=== PATIENT | male | born 1930 | race Caucasian/White ===

== ENCOUNTER 2019-02-04 13:43 | Inpatient (IN) ==
--- NOTE | 2019-02-04 15:05 | PROVIDER DOCUMENTATION ---
HPI-General Adult - General Chief Complaint: Extremity Injury Stated Complaint: fall, ankle fx Time Seen by Provider: 02/04/19 14:01 Source: patient, family Allergies/Adverse Reactions: Patient Allergies Allergy/AdvReac Type Severity Reaction Status Date / Time No Known Allergies Allergy Verified 04/24/18 10:26 Home Medications: Home Medication List Medication Instructions Recorded Confirmed Last Taken Type ATORVAstatin [Lipitor] 40 mg PO QHS 06/21/17 04/24/18 04/24/18 History Baclofen 10 mg PO BID 06/21/17 04/24/18 04/23/18 History Carvedilol [Coreg] 12.5 mg PO BID 06/21/17 04/24/18 04/23/18 History Clopidogrel [Plavix] 75 mg PO DAILY 06/21/17 04/24/18 04/23/18 History Hydrocodone/APAP 10 mg/325 mg 1 ea PO Q6H PRN PRN #14 tab 06/23/17 04/24/18 04/23/18 Rx [Addison-10] Aspirin 81 mg PO DAILY 07/10/17 04/24/18 04/23/18 History Lisinopril 5 mg PO DAILY 07/10/17 04/24/18 04/23/18 History - History of Present Illness -Gen Adult Nature of Presenting Problems: This is a 88yo male who presents with CC of fall and ankle injury about 1 hour ago. The patient reports he was walking down the steps and mis-stepped on the last step and hurt his ankle. The patient denies any head injury or LOC. The patient denies any pain except at his ankle. The patient denies any issues with that ankle previously, and the patient denies seeing any bleeding or bone. Location of Pain/Injury: reports: lower extremity (left ankle) Onset/Duration: reports: 1 hour ago Timing: reports: still present Context/Activities at Onset: reports: other (walking and mis-step on steps) Associated Symptoms: reports: denies symptoms Review of Systems - Adult - REVIEW OF SYSTEMS - ADULT Constitutional: reports: no symptoms reported Eyes: reports: no symptoms reported. denies: eye pain Ears, Nose, Mouth & Throat: reports: no symptoms reported. denies: throat pain Cardiovascular: reports: no symptoms reported. denies: chest pain Respiratory: reports: no symptoms reported Gastrointestinal: reports: no symptoms reported. denies: abdominal pain Genitourinary: reports: no symptoms reported. denies: flank pain Musculoskeletal: reports: joint pain (ankle joint pain) Integumentary: reports: other (skin swelling at ankle) Neurological: reports: no symptoms reported. denies: headache/migraines Psychiatric: reports: no symptoms reported Endocrine: reports: no symptoms reported Hematologic/Lymphatic: reports: no symptoms reported, other (no bleeding) Past History - Adult - PAST MEDICAL HISTORY-ADULT Review of Records: reports: Old Records Reviewed Major Childhood Illnesses: reports: denies history Cardiovascular: reports: denies history Respiratory: reports: denies history Gastrointestinal: reports: denies history Genitourinary: reports: prostate cancer Musculoskeletal: reports: denies history Neurological: reports: denies history Endocrine/Immune: reports: denies history 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) - PRIOR SURGERIES/PROCEDURES Surgical/Procedure History: reports: reviewed, not pertinent - IMMUNIZATION STATUS Childhood Immunizations: See Nurse Assessment Flu Vaccine: See Nurse Assessment - FAMILY HISTORY Family History: reviewed, not pertinent - SOCIAL HISTORY Smoking: denies Substance Use: none/never Alcohol Use Frequency: never Physical Exam-General - PHYSICAL EXAM-ADULT Initial Vital Signs Reviewed: Yes - CONSTITUTIONAL General Appearance: appears well, alert, no apparent distress - EYES Eyes: negative: conjuctival exudate, photophobia - HEAD, EARS, NOSE, MOUTH & THROAT HENMT: normocephalic/atraumatic, moist mucous membranes - NECK Neck: normal inspection - RESPIRATORY Respiratory: normal breath sounds - CARDIOVASCULAR Cardiovascular: regular rate, rhythm, no murmur - GASTROINTESTINAL (ABDOMEN) Abdominal Exam: non tender, soft - MUSCULOSKELETAL Extremity: deformity (left ankle with swelling and gross deformity), erythema, other (2+ left dorsalis pedis pulse, sensation and motor intact in the LLE) - SKIN Integumentary: erythema (noted over left ankle, no skin break noted), other (there is a small approximately 3-4mm break in the skin noted at the left medial malleolus. The area is hemostatic.) - NEUROLOGIC Neurologic: grossly normal - PSYCHIATRIC Psych/Mental Status: normal mood/affect, normal thought content, normal thought process Progress - PLAN OF CARE/RESULTS Progress/Plan/Lab Results: Vital Signs - 8 hr 02/04/19 14:18 Temperature 97.9 F Pulse Rate 75 Respiratory Rate 18 Blood Pressure 179/98 O2 Sat by Pulse Oximetry 97 Orders Category Date Time Status ANKLE 2 VIEWS LEFT [RAD] Stat Exams 02/04/19 14:45 Ordered FOOT 2 VIEWS LEFT [RAD] Stat Exams 02/04/19 14:47 Ordered LOWER LEG-LEFT [RAD] Stat Exams 02/04/19 14:45 Ordered - REASSESSMENT Reassessment #1 Status: other (Fractures and dislocation noted on xray. Awaiting discussion with on-call ortho.) Reassessment #2 Status: other (Discussed case with ortho who recomend reduction of the ankle and admission to the hospitalist service with plans for surgery tomorrow. Discussed with patient and family about procedure with risks and benfits and they are agreable. Will use concious sedation for procedure.) Reassessment #3 Status: other (Patient now awake post sedation and doing well. Discussed case with hospitalist team who have accepted the patient. IV abx were started given small break in skin noted prior to reduction and concern for possible open fx.) - XRAY 1 XRAY Study: Tibia/Fibula (Signed EXAM: LOWER LEG-LEFT HISTORY: fall TECHNIQUE: Three views COMPARISON: None. FINDINGS: There is a transverse fracture to the medial malleolus. The tibia is dislocated medially in relation to the talus over 2.5 cm. There is an oblique fracture to the distal fibula. The fibula shaft remains aligned with the tibial shaft and is dislocated medially. The lateral malleolus remains aligned with the talus. Over 35 degrees angle at this fracture. Nondisplaced fracture to the proximal fibula. IMPRESSION: Fractures to the tibia and fibula. Electronically signed by Jevon Ellington 02/04/2019 3:58 PM 02/04/19 8828 Interpreting Physician: Jevon Ellington MD Dictated Date/Time: 02/04/19 7139), Ankle (EXAM: ANKLE 2 VIEWS LEFT HISTORY: Fall TECHNIQUE: Two views COMPARISON: None. FINDINGS: There is an oblique fracture to the distal shaft of the fibula. There is a transverse fracture to the medial malleolus with an additional fracture through the posterior tibia. The shafts of the tibia and fibula are dislocated from the talus. The lateral and medial malleolar lumbar fragments remain aligned with the talus. IMPRESSION: Fractures to the distal tibia and fibula Electronically signed by Jevon Ellington 02/04/2019 3:30 PM 02/04/19 1530 Interpreting Physician: Jevon Ellington MD Dictated Date/Time: 02/04/19 1528 cc: Adin Blair MD; Edward Aaron MD), Foot (EXAM: FOOT 2 VIEWS LEFT HISTORY: Fall TECHNIQUE: Left foot two views COMPARISON: None. FINDINGS: Fractures and dislocations to the distal tibia and fibula again demonstrated. No other fracture to the left. IMPRESSION: Fractures and dislocations to the distal tibia and fibula, but no acute fracture to the foot. Electronically signed by Jevon Ellington 02/04/2019 3:47 PM 02/04/19 1547 Interpreting Physician: Jevon Ellington MD Dictated Date/Time: 02/04/19 1546 cc: Adin Blair MD; Edward Aaron MD) XRAY Interpretation: Procedures - SPLINTING Left Lower Extremity Pre-Procedure Neurovascular Exam: Intact Splint Application (Hand-Made): Posterior OCL, Other (ankle stirrup) Applied By: ED Physician Assisted By: ED Physician (as well as natural gas technician) Post Procedure Neurovascular Exam: Intact - PROCEDURAL SEDATION Procedure, Risk, Benefits and Alternatives discussed with:: Patient Consent Form Signed?: Yes Sedation type:: moderate ASA Classification Score: P2. Patient with a mild systemic disease. Plan explained to:: patient Preparation: consent signed Sedation: propofol, ketamine Reversal: none Complications during/after procedure?: none Intra-service time:: 30 minutes or less (Post exam patient neurovascularly intact.) Procedure Comment: Successful reduction of left ankle w/o complications.Patient tolerated well Departure - Departure Date of Disposition Decision: 02/04/19 Time of Disposition Decision: 18:08 DIAGNOSIS: Fracture of tibia with fibula, left, open, Ankle dislocation Ankle fracture, left Qualifiers: Encounter type: initial encounter Fracture type: open Disposition: ADMITTED INPATIENT 09 Certified Medical Emergency: Emergent Condition: Fair Referrals and Follow-Ups: Edward Aaron MD [Primary Care Provider] - - Critical Care Note This patient required my direct & personal management of CC.: No Attestation - Physician/ MANOJ Attestation Patient care was provided by Advanced Practice Provider:: No The physician spent face to face time with patient:: Yes Advanced Practice Provider documentation review:: Supervising physician onsite and consulted in the evaluation and care of this patient. The physician did have a face to face encounter with the patient.
--- NOTE | 2019-02-04 15:32 | Diag Imaging Result Doc PS360 ---
EXAM: ANKLE 2 VIEWS LEFT HISTORY: Fall TECHNIQUE: Two views COMPARISON: None. FINDINGS: There is an oblique fracture to the distal shaft of the fibula. There is a transverse fracture to the medial malleolus with an additional fracture through the posterior tibia. The shafts of the tibia and fibula are dislocated from the talus. The lateral and medial malleolar lumbar fragments remain aligned with the talus. IMPRESSION: Fractures to the distal tibia and fibula Electronically signed by Jevon Ellington 02/04/2019 3:30 PM
--- NOTE | 2019-02-04 15:50 | Diag Imaging Result Doc PS360 ---
EXAM: FOOT 2 VIEWS LEFT HISTORY: Fall TECHNIQUE: Left foot two views COMPARISON: None. FINDINGS: Fractures and dislocations to the distal tibia and fibula again demonstrated. No other fracture to the left. IMPRESSION: Fractures and dislocations to the distal tibia and fibula, but no acute fracture to the foot. Electronically signed by Jevon Ellington 02/04/2019 3:47 PM
--- NOTE | 2019-02-04 16:01 | Diag Imaging Result Doc PS360 ---
EXAM: LOWER LEG-LEFT HISTORY: fall TECHNIQUE: Three views COMPARISON: None. FINDINGS: There is a transverse fracture to the medial malleolus. The tibia is dislocated medially in relation to the talus over 2.5 cm. There is an oblique fracture to the distal fibula. The fibula shaft remains aligned with the tibial shaft and is dislocated medially. The lateral malleolus remains aligned with the talus. Over 35 degrees angle at this fracture. Nondisplaced fracture to the proximal fibula. IMPRESSION: Fractures to the tibia and fibula. Electronically signed by Jevon Ellington 02/04/2019 3:58 PM
[2019-02-04] MEDS ORDERED: DIPRIVAN 1% IV ONE ×2 (17:03→17:16)
[2019-02-04] MEDS ORDERED: NS 1,000 ML IV ONE (17:14)
[2019-02-04] MEDS ORDERED: KETAMINE IV ONE (17:17)
[2019-02-04] MEDS ORDERED: VANCOMYCIN 1 GM/NS 1 GM/250 ML IVPB IV ONE (18:00)
[2019-02-04] MEDS ORDERED: ZOSYN 4.5 GM in NS 100 ML IV SCH (18:00)
[2019-02-04] MEDS ORDERED: KEFZOL 2 GM/D5W 2 GM/50 ML IVPB IV ONE (18:29)
[2019-02-04] MEDS ORDERED: ZOFRAN IV PRN (18:42)
[2019-02-04] MEDS ORDERED: VANCOMYCIN IV PER PHARMACY MISC SCH (19:00)
--- NOTE | 2019-02-04 19:05 | Diag Imaging Result Doc PS360 ---
EXAM: ANKLE COMPLETE LEFT INDICATION: INJURY TECHNIQUE: 3 views COMPARISON: 02/04/2019 FINDINGS: The known fractures of the distal fibular shaft and the medial malleolus are better aligned status post reduction. There is now only mild displacement. No new fractures are appreciated on these images. There is casting material surrounding the ankle. IMPRESSION: Interval reduction of the fractures of the distal tibia and fibula as described. Electronically signed by Suleiman Chavarria 02/04/2019 7:02 PM
[2019-02-04] MEDS ORDERED: MORPHINE IV PRN (19:21)
--- NOTE | 2019-02-04 20:35 | HISTORY AND PHYSICAL ---
CHIEF COMPLAINT: Fall, left foot pain. HPI: This is an 88-year-old gentleman who presented to the emergency room after miss stepping while walking down steps, falling and hurting his left ankle. He was found to have a dislocation as well as a tibia and fibula fracture. He underwent closed reduction in the emergency room per the ER physician with a posterior OCL ankle stirrup applied, which he tolerated well. He does have good PMS at the time of my exam. There was a question of an open fracture as he does have an area to his left medial malleolus that may be a half a centimeter break in the skin with the possibility of an open fracture for which he has received vancomycin and Zosyn. Dr. Ellsworth, Orthopedics has been consulted. PAST MEDICAL HISTORY: 1. Prostate cancer status post total prostatectomy greater than 15 years ago. 2. 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 3. Basal cell cancer on the penile shaft that has been excised x2. 4. 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 FAMILY HISTORY: CAD in his 2 brothers, negative for diabetes. SOCIAL HISTORY: He has 3 children. He quit smoking greater than 25 years ago. He denies any alcohol or illicit drug use. ALLERGIES: No known drug allergies. HOME MEDICATIONS: A list will be obtained by the nursing staff and once verified will review and restart as appropriate. REVIEW OF SYSTEMS: Discussed with patient with pertinent positives stated in the HPI. He denied any syncope, dizziness, chest pain, palpitations, shortness of breath, cough, fever, chills, any night sweats, PND, orthopnea, any recent weight loss or weight gain, any nausea, vomiting, diarrhea, constipation, black or bloody vomitus or stools, any hematuria, dysuria, frequency, urgency. PHYSICAL EXAMINATION: This is an 88-year-old gentleman who is lying in the bed. He is drowsy after being sedated for post reduction in no distress. VITAL SIGNS: Blood pressure is 160/94 with heart rate of 68, respirations 18, temperature is 97.9 degrees oral with room air saturations 98-100% HEENT: Pupils equal, round, react to light. EOMs are intact. Sclerae anicteric. Head is normocephalic, atraumatic. Mucous membranes are moist. NECK: Supple, trachea midline. CARDIOVASCULAR: Regular rate and rhythm, S1, S2 appreciated. He has no upper or right lower extremity edema. Left lower extremity is edematous just at the ankle. Peripheral pulses are palpable x4 extremities. PULMONARY: Breath sounds are clear. No increased work of breathing noted. Chest rises and falls symmetric with respiration. GASTROINTESTINAL: Abdomen soft, nontender, nondistended. Bowel sounds in all 4 quadrants. NEUROLOGIC: He is drowsy after sedation. SKIN: Warm and dry. There is area to his left medial malleolus about half a centimeter with skin is broken with no drainage. LABS: There are no labs. X-ray left lower leg revealed fractures to the tibia and fibula. Tibia is dislocated medially in relation to the talus over 2.5 cm. Left foot x-ray reveals fractures and dislocations to the distal tibia and fibula but no acute fracture to the foot . ASSESSMENT AND PLAN: 1. Tibia-fibula fracture, posterior OCL splint is in place. The patient has been evaluated by Orthopedics. He will be admitted. He will be NPO tonight for surgery in the morning. 2. Questionable open fracture. He was given vancomycin and Zosyn in the emergency room but we will continue with antibiotic coverage. 3. History of prostate cancer aware. 4. 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 5. Will check a stat CBC, CMP and PT/INR now. Repeat a CBC and CMP in the morning. The patient will be NPO. 6. Further treatments pending hospital course. 7. Plan was discussed with Dr. Baker. Dictated by SUSI Patterson for Narciso Baker MD cc: SUSI Patterson MD
[2019-02-04 20:59] LABS: BASO# 0.02 X1000 (0.0-0.2); BASO% 0.2 % (0.0-0.8); EOS# 0.17 X1000 (0.0-0.7); EOS% 1.9 % (0.0-10.0); HEMOGLOBIN 14.2 g/dL (14.0-18.0); LYMPH# 1.42 X1000 (1.2-3.4); LYMPH% 16.1 % (20.5-51.1); MCH 33.6 PG (27-31); MCHC 33.8 g/dL (33-37); MCV 99.5 FL (81-99); MONO# 1.26 X1000 (0.11-0.59); MONO% 14.3 % (1.7-9.3); MPV 10.3 FL (7.4-10.4); NEUT# 5.93 X1000 (1.4-6.5); NEUT% 67.5 % (42.2-75.2); PLT 154 X1000 (130-400); RBC 4.22 XMIL (4.7-6.1); RDW 13.8 % (11.5-14.5)
--- NOTE | 2019-02-04 21:04 | EKG Report ---
Test Performed on : 02/04/2019 8:34:57 PM Test Reason : Afib Blood Pressure : / mmHG Vent. Rate : 083 BPM Atrial Rate : 083 BPM P-R Int : 192 ms QRS Dur : 162 ms QT Int : 430 ms P-R-T Axes : 108 176 159 degrees QTc Int : 505 ms Suspect arm lead reversal, interpretation assumes no reversal Normal sinus rhythm. Right bundle branch block Lateral infarct , age undetermined T wave abnormality, consider inferior ischemia Abnormal ECG When compared with ECG of 24-APR-2018 09:56, QRS axis shifted right Lateral infarct is now present QT has lengthened Unconfirmed Result
[2019-02-04 21:06] LABS: INR 1.06
[2019-02-04 21:25] LABS: AGAP 12; ALB/GLOB RATIO 1.6; ALBUMIN 3.8 g/dL (3.5-5.0); ALKALINE PHOSPHATASE 45 U/L (32-122); BUN 16 mg/dL (8-22); CHLORIDE 104 mmol/L (98-107); COSMO 278; CREATININE 1.1 mg/dL (0.7-1.2); ESTIMATED GFR > 60; GLUCOSE 92 mg/dL (70-104); GOT 17 U/L (10-34); GPT 11 U/L (10-44); POTASSIUM 4.5 mmol/L (3.5-5.1); SODIUM 139 mmol/L (136-145); TCO2 23 mmol/L (25-35); TOTAL PROTEIN 6.2 g/dL (6.3-8.3)
--- NOTE | 2019-02-04 21:37 | ORTHOPAEDICS CONSULTATION ---
DATE: 02/04/2019 CHIEF COMPLAINT: Left ankle pain. HISTORY OF PRESENT ILLNESS: This is an 88-year-old male who presented to the emergency department at [facility] for a left ankle injury. The patient reports he was walking down some steps and missed the last step and twisted his ankle and felt a pop. The patient denies head injury, LOC. The patient reports that he is unable to bear weight on the ankle at this time. PAST MEDICAL HISTORY: Patient reports high blood pressure, hyperlipidemia, throat cancer in remission, prostate cancer in remission. PAST SURGICAL HISTORY: Patient has had a prostatectomy and a tumor removed from his throat. PHYSICAL EXAMINATION: General: Patient is awake, alert, sitting in hospital bed in no acute distress at this time. HEENT: Head is atraumatic, normocephalic. Neck: Supple. Respiratory: Equal chest expansion, rise and fall. Cardiovascular: There is regular rate and rhythm at this time. Abdomen: Soft, nontender. Musculoskeletal.: Left lower extremity. There is noted deformity of the left lower extremity with a mild spot of redness to the medial aspect of the ankle. There is small break in the skin at this area. There is some erythema with 2+ pedal pulses. There is good sensation. There is good capillary refill in the toes. Vital Signs: Temperature 97.9 degrees, pulse rate 75, respiratory rate 18, blood pressure 179/98, oxygen saturation 97% on room air. MEDICATIONS: The patient reports Lipitor 40 mg at bedtime, aspirin 81 mg daily, baclofen 10 mg b.i.d., carvedilol 12.5 mg b.i.d. Patient denies taking Plavix at this time but it does show up on his medication history. The patient reports taking lisinopril 5 mg daily. The patient states he is now taking aspirin 81 mg daily instead of Plavix. ALLERGIES: There are no known drug allergies. REVIEW OF SYSTEMS: Twelve point review of system was performed, pertinent positives listed in HPI. X-RAYS: Left lower extremity x-ray shows a trimalleolar ankle fracture with displacement to the distal tibia and fibula. A reduction was done in the ER and postreduction films show better alignment to the distal tibia and fibula but still remains displaced. ASSESSMENT: Trimalleolar ankle fracture. PLAN: We will plan to do an ORIF of the left ankle tomorrow. The patient understands that surgery is going to be needed for his ankle. They agreed to the risks of surgery which include possible damage to tendon or blood vessel, risk of , or problems with anesthesia. The patient and family at bedside agreed to these risks. We will proceed with ORIF of the left ankle tomorrow. We will keep the patient NPO tonight after midnight. We will also keep him in the short-leg splint at this time. LABS: Labs are currently unavailable for review. We will check back on them in the morning, make sure they are all good before surgery. Dictated by SUSI Wade for Suleiman Ellsworth MD cc: SUSI Wade MD
--- NOTE | 2019-02-04 22:08 | HISTORY AND PHYSICAL ---
ADDENDUM: I have seen and examined Mr. De La Cruz today. The daughter was at the bedside at the time of the encounter. Mr. De La Cruz came in to the emergency room today after he sustained a trauma to his left ankle. Apparently, he was coming off the stairs and he seems to have missed the last step at home, and then stepped wrongly and inverted when it happened. He just could not bear any weight any longer. The left ankle started to swell. He came to the emergency department where he was evaluated, and an x-ray has shown fractures to the tibia and the fibula. Mr. De La Cruz has been admitted for further orthopedic evaluation. Orthopedic team has already been notified. His medical history includes previous history of coronary artery disease, status post stent, dyslipidemia, and hypertension, which are all under control. Mr. De La Cruz is completely asymptomatic from the heart standpoint. He denies any diabetes. He denies any chronic liver injury. He denies any chronic lung disease or kidney disease. His physical exam for the most part is unremarkable except for the left lower extremity which is currently in a cast. I have also reviewed all his x-rays. The repeat ankle x- ray after the reduction shows interval reduction of the fractures of the distal tibia and the fibula. LABORATORY DATA: Currently not available. ASSESSMENT: 1. Status post trauma to the left lower extremity, leading into multiple fractures of both the tibia and the fibula. The patient has currently been reduced. Orthopedics have been consulted. There is a possibility of taking him to the operating room tomorrow. 2. Coronary artery disease, currently stable. Patient is completely asymptomatic. He is on home medications which are all okay to be started. 3. Hypertension, currently uncontrolled. I think part of it is because he is hurting. Once pain is better addressed, I think this will also be okay. 4. Dyslipidemia. Will continue with his home atorvastatin. PERIOPERATIVE EVALUATION: Mr. De La Cruz is an 88-year-old gentleman who does not have any chronic liver or lung or kidney disease. He does not have diabetes. He does have a stable coronary artery disease on medications and he is currently asymptomatic. He is not on any blood thinner except for an antiplatelet which is aspirin for his stable coronary artery disease. Mr. De La Cruz is a low to moderate risk patient for a nonvascular orthopedic intervention. We recommend surgery to proceed. Please refer to the details of the H&P dictated by the PROJECT FACILITATOR in the chart. cc: Narciso Baker MD [facility]US[facility]adine
[2019-02-05] MEDS ORDERED: KEFZOL 2 GM/D5W 2 GM/50 ML IVPB IV SCH (05:00)
[2019-02-05 08:19] LABS: AGAP 12; ALB/GLOB RATIO 1.3; ALBUMIN 3.6 g/dL (3.5-5.0); ALKALINE PHOSPHATASE 46 U/L (32-122); BUN 14 mg/dL (8-22); CALCIUM 8.8 mg/dL (8.8-10.2); CHLORIDE 100 mmol/L (98-107); COSMO 273; CREATININE 1.1 mg/dL (0.7-1.2); ESTIMATED GFR > 60; GLUCOSE 110 mg/dL (70-104); GOT 16 U/L (10-34); GPT 8 U/L (10-44); POTASSIUM 4.5 mmol/L (3.5-5.1); SODIUM 136 mmol/L (136-145); TCO2 24 mmol/L (25-35); TOTAL BILIRUBIN 0.93 mg/dL (0.20-1.00); TOTAL PROTEIN 6.3 g/dL (6.3-8.3)
[2019-02-05 08:26] LABS: BASO# 0.03 X1000 (0.0-0.2); BASO% 0.5 % (0.0-0.8); EOS# 0.18 X1000 (0.0-0.7); EOS% 3.1 % (0.0-10.0); HEMATOCRIT 43.5 % (42.0-52.0); HEMOGLOBIN 14.2 g/dL (14.0-18.0); LYMPH# 1.08 X1000 (1.2-3.4); LYMPH% 18.6 % (20.5-51.1); MCH 32.9 PG (27-31); MCHC 32.6 g/dL (33-37); MCV 100.9 FL (81-99); MONO# 0.91 X1000 (0.11-0.59); MONO% 15.6 % (1.7-9.3); NEUT# 3.62 X1000 (1.4-6.5); NEUT% 62.2 % (42.2-75.2); PLT 148 X1000 (130-400); RBC 4.31 XMIL (4.7-6.1); RDW 13.8 % (11.5-14.5); WBC 5.82 X1000 (4.8-10.8)
[2019-02-05] MEDS ORDERED: DIPRIVAN 1% ONE (11:01)
[2019-02-05] MEDS ORDERED: XYLOCAINE-MPF 2% ONE (11:39)
[2019-02-05] MEDS ORDERED: SENSORCAINE-MPF 0.5%/EPI 1:200,000 ONE (12:14)
[2019-02-05] MEDS ORDERED: KEFZOL 2 GM/D5W 2 GM/50 ML IVPB ONE (12:40)
[2019-02-05] MEDS ORDERED: OFIRMEV 1000 MG/ISOTONIC SOLN 1,000 MG/100 ML BOTTLE ONE (13:01)
[2019-02-05] MEDS ORDERED: ZOFRAN ONE (13:01)
[2019-02-05] MEDS ORDERED: DILAUDID ONE (13:09)
[2019-02-05] MEDS ORDERED: EPHEDRINE ONE (13:21)
--- NOTE | 2019-02-05 14:49 | OPERATIVE NOTE ---
PROCEDURE DATE: 02/05/2019 PREOPERATIVE DIAGNOSIS: Fracture-dislocation, left ankle. POSTOPERATIVE DIAGNOSIS: Fracture-dislocation, left ankle. PROCEDURES PERFORMED: 1. Open reduction and internal fixation of distal tibia. 2. Open reduction and internal fixation of distal fibula, left ankle. SURGEON: Suleiman Ellsworth MD. FISH[employer]IES TECHNICAL OFFICER: SUSI Rosario. ANESTHESIA: General. COMPLICATIONS: None. PROCEDURE IN DETAIL: This 88-year-old male presents for ORIF of a comminuted bimalleolar ankle fracture-dislocation. Risks, benefits, and no guarantees were discussed, and he is willing to proceed. He was taken to the operating room and satisfactory anesthesia obtained. The left leg was prepped and draped in the usual sterile fashion. A time-out was taken to confirm operative site, procedure, and patient. The leg was wrapped with an Esmarch and tourniquet inflated to 300 mmHg. The distal fibula was approached first through a lateral incision. An excessively comminuted distal fibular fracture was noted. This was reduced longitudinally as well as rotationally. Two interfragmentary screws were placed to reduce the fracture to a simple Garcia B type pattern. A locking distal fibular Synthes plate was then secured with AO technique with multiple locking screws distally and proximally to secure the reduction. Afterwards, this was imaged with the fluoroscopic unit to verify proper alignment and rotation and length. Good stability of the fixation was achieved. The wound was irrigated and closed in layers with 2-0 Vicryl and skin cristiane. An incision was made over the medial side of the ankle and the medial malleolus fracture exposed. Excessive comminution of the medial malleolus was noted. The decision was made to use a hook type buttress plate as well as a longitudinal screw from the tip of the medial malleolus up the metaphysis to compress the fracture. Using the hook plate, this was used as a buttress and 2 additional cancellous screws placed to secure the hook plate. C-arm was used to verify accurate fracture reduction and hardware placement. The wound was irrigated and closed with similar technique with 2-0 Vicryl and skin cristiane. Sterile dressings were applied and a posterior plaster splint with stirrup. The patient was recovered from anesthesia and tourniquet released with good return of capillary blood flow. No intraoperative complications were noted. Instrument count and sponge count were correct at the time of closure. cc: Suleiman Ellsworth MD
[2019-02-05] MEDS ORDERED: ZOFRAN IV PRN (15:29)
[2019-02-05] MEDS ORDERED: MILK OF MAGNESIA PO PRN (15:29)
[2019-02-05] MEDS ORDERED: HALDOL IV PRN (15:30)
--- NOTE | 2019-02-05 16:32 | PROGRESS NOTE ---
DATE: 02/05/2019 SUBJECTIVE: This morning Mr. De La Cruz referred to be doing well, was hurting in the foot and was awaiting for surgery to be done. OBJECTIVE: Vital signs: Blood pressure is 146/87, pulse of 81, respirations 20, temperature 98.5 degrees. General: Mr. De La Cruz is an 88-year-old elderly gentleman. He was in bed. He was not in any distress. HEENT: Mucosa was pink and moist. Anicteric. Acyanotic. Neck: Supple. Chest: Clear. No crepitations. No rhonchi. Cardiovascular: Regular rate and rhythm. Abdomen: Soft, nontender. Bowel sounds present. Extremities: The left is in orthopedic cast. Right is unremarkable. MANAGEMENT COORDINATOR: Patient is awake, alert, and oriented. LABORATORY DATA: CBC showed microcytosis. Chemistry was unremarkable. ASSESSMENT: 1. Status post trauma to the left lower extremity resulting into multiple fractures of the tibia and fibula. Patient was pending orthopedic intervention today. 2. History of coronary artery disease, currently asymptomatic. 3. Hypertension, controlled. 4. Dyslipidemia. PLAN: In general, I think Mr. De La Cruz is clinically stable. He is currently completely asymptomatic. He was pending surgery later on today. This afternoon we reviewed his chart, and he has finished the procedure, which included an open reduction and internal fixation of the distal tibia, and there was also an open reduction and internal fixation of the distal fibula. Will re-evaluate Mr. De La Cruz tomorrow morning. We will get Physical Therapy also to evaluate him and decide whether he can go home or he will need to be in rehab. cc: Narciso Baker MD
[2019-02-05] MEDS: NS 1,000 ML IV SCH ×2 (16:41)
[2019-02-05] MEDS: COLACE PO SCH (20:00)
[2019-02-05] MEDS: OXY IR PO PRN ×2 (20:01→23:14)
[2019-02-05] MEDS: KEFZOL 1 GM/D5W 1 GM/50 ML IVPB IV SCH (20:02)
[2019-02-05] MEDS: MORPHINE IV PRN (22:09)
[2019-02-05] MEDS: TYLENOL PO SCH (23:19)
[2019-02-06] MEDS: MORPHINE IV PRN ×2 (00:20→06:01)
[2019-02-06] MEDS: KEFZOL 1 GM/D5W 1 GM/50 ML IVPB IV SCH (06:01)
[2019-02-06] MEDS: TYLENOL PO SCH ×3 (06:02→22:21)
[2019-02-06] MEDS: XARELTO PO SCH (06:02)
[2019-02-06 07:19] LABS: HEMATOCRIT 40.4 % (42.0-52.0); HEMOGLOBIN 12.9 g/dL (14.0-18.0)
--- NOTE | 2019-02-06 07:43 | ORTHOPAEDICS PROGRESS NOTE ---
DATE: 02/06/2019 Mr. De La Cruz is seen status post ORIF of the ankle. He is afebrile with stable vital signs. His bandage and splint are intact and clean and dry. He can be mobilized partial weightbearing today. He will likely need inpatient rehab for several weeks. Discharge planning can start on that as they see. I will be available to recheck him again tomorrow. Surgically, he seems to be stable at the present time. cc: Suleiman Ellsworth MD
[2019-02-06 07:51] LABS: AGAP 11; BUN 12 mg/dL (8-22); CALCIUM 7.8 mg/dL (8.8-10.2); CHLORIDE 102 mmol/L (98-107); COSMO 279; CREATININE 1.1 mg/dL (0.7-1.2); ESTIMATED GFR > 60; GLUCOSE 126 mg/dL (70-104); POTASSIUM 4.3 mmol/L (3.5-5.1); SODIUM 139 mmol/L (136-145); TCO2 26 mmol/L (25-35)
[2019-02-06] MEDS: PERIDEX MT SCH ×3 (08:36→22:41)
[2019-02-06] MEDS: FERROUS SULFATE PO SCH (08:36)
[2019-02-06] MEDS: OXY IR PO PRN ×3 (09:33→18:45)
[2019-02-06] MEDS: NS 1,000 ML IV SCH ×2 (10:59→19:45)
--- NOTE | 2019-02-06 14:26 | PROGRESS NOTE ---
DATE: 02/06/2019 SUBJECTIVE: This morning Mr. De La Cruz refers to be doing well. He was about to go for therapy evaluation. OBJECTIVE: Vital signs: Blood pressure is 120/65, pulse of 102, respirations 22, temperature is 98.2 degrees. General: Mr. De La Cruz is an 88-year-old gentleman. He was sitting at the edge of the bed, getting ready for therapy. Chest: Clear to auscultation. No crepitations. No rhonchi. Cardiovascular: Regular rate and rhythm. GI: Abdomen is soft, nontender. Bowel sounds present. Extremities: The left lower extremity was in an orthopedic cast. Right was unremarkable. 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 LABORATORY DATA: Hemoglobin is 12.9. Chemistry is unremarkable. ASSESSMENT: 1. Status post mechanical fall with an injury to the left lower extremity resulting in multiple fractures of the distal tibia and fibula with ankle dislocation. The patient is status post ORIF of the left lower bones. Today is day 1 post surgery. Physical therapy is here to evaluate. 2. History of coronary artery disease. Currently asymptomatic. 3. Hypertension. Controlled. 4. Dyslipidemia. PLAN: So in general, I think Mr. De La Cruz seems to be doing pretty well after the surgery. Per orthopedic documentation, it appears that he might need to go to rehab. However, Case Management's note seems to suggest that Mr. De La Cruz plans to go home. We will revisit this later on with him after physical therapy and have a clear plan as to where he would prefer to go. At the time of the dictation I saw the physical therapy notes where it suggested that he was able to do about 30 feet with minimum assist with a front wheel walker, so it does appear that he will probably be okay going home. cc: Narciso Baker MD
[2019-02-06] MEDS: COLACE PO SCH (19:45)
[2019-02-07] MEDS: NS 1,000 ML IV SCH (04:04)
[2019-02-07] MEDS: COLACE PO SCH (04:04)
[2019-02-07] MEDS: XARELTO PO SCH (06:52)
[2019-02-07] MEDS: TYLENOL PO SCH (06:52)
[2019-02-07] MEDS: OXY IR PO PRN (06:52)
[2019-02-07] MEDS: FERROUS SULFATE PO SCH (08:14)
[2019-02-07] MEDS: PERIDEX MT SCH (08:14)
[2019-02-07] MEDS ORDERED: FLU VACCINE IM ONE (08:46)
[2019-02-07 11:41] VITALS: BP 157/83
--- NOTE | 2019-02-07 22:26 | DISCHARGE SUMMARY ---
ADMISSION DATE: 02/04/2019 DISCHARGE DATE: 02/07/2019 DISPOSITION: Home with home health. CONSULTATION DURING ADMISSION: Orthopedics was consulted, patient was seen by Dr. Ellsworth. INVASIVE PROCEDURES DURING ADMISSION: 1. An open reduction and internal fixation of the distal tibia. 2. An open reduction and internal fixation of distal fibula and left ankle fracture was done by Dr. Ellsworth on 02/05/2019. IMAGING STUDIES OF SIGNIFICANCE: 1. An ankle x-ray was done which showed fractures of the distal tibia and fibula. 2. A lower extremity CT scan also showed fractures of the tibia and fibula on the left. ADMISSION DIAGNOSES: 1. Status post trauma to the left lower extremity relating to multiple fractures. 2. Coronary artery disease, stable. 3. Hypertension. 4. Dyslipidemia. DIAGNOSES AT DISCHARGE: 1. Status post mechanical fall resulting in an injury to the left lower extremity resulting in multiple fractures of the distal tibia and fibula with ankle dislocation. The patient is status post open reduction internal fixation of the left lower bones. 2. History of coronary artery disease. Currently asymptomatic. 3. Hypertension. 4. Dyslipidemia. DISCHARGE MEDICATIONS: 1. Atorvastatin 40 mg p.o. at bedtime. 2. Baclofen 10 mg b.i.d. 3. Carvedilol 12.5 mg b.i.d. 4. Colace 200 mg p.o. at bedtime daily. 5. Oxycodone 5 mg p.o. q.3 hours. 6. Iron sulfate 325 p.o. daily. 7. Xarelto 10 mg p.o. daily. PRESENTING COMPLAINT: Status post mechanical fall, left leg pain. HISTORY OF PRESENT COMPLAINT: Mr. De La Cruz is an 88-year-old male with multiple comorbidities, including hypertension, coronary artery disease, which is stable, came to the emergency department after he sustained a mechanical fall, resulting into a left ankle trauma. He could not bear weight immediately on that, came to the emergency department, where he was evaluated and was found on exams and on imaging studies, fractures to the distal left leg at the ankle level. Mr. De La Cruz was admitted for management. HOSPITAL COURSE: Mr. De La Cruz was admitted to the medical floor, was hydrated and pain was controlled. Orthopedic was consulted. He was perioperatively evaluated. His coronary artery disease was pretty much asymptomatic. He was cleared for surgery. Orthopedics took him in and did ORIF of the bones of the lower left ankle. Postoperatively, he did well. He was evaluated on 2 occasions by physical therapy, including today where the patient was found to have to made 50 feet with minimum assistance. He was initially recommended to go to rehab; however, he thought he was okay to go home. He has enough help at home and he also will be okay with home health. From medical standpoint, we think he is stable. Orthopedics has also evaluated him. The patient is stable enough to go home on home health and will follow up with Dr. Ellsworth. At the time of the discharge, there was no pending labs. No imaging studies pending. DISCHARGE VITAL SIGNS: His current vitals at the time of discharge, blood pressure was 157/83, pulse of 85, respirations 16, temperature is 98.5. Mr. canales is in stable condition for discharge. TIME SPENT: For discharge is 35 minutes. cc: MD Chaz Acharya MD John R. Riehl, MD
== END 2019-02-07 13:53 | disposition home health service (06) | DRG 494 ==
LOC: SUPCPDRO → ED 13:43 → 4N 20:45
PROVIDERS: ATTEND Internal Medicine